=== PATIENT | female | born 1955 | race Caucasian/White ===

== ENCOUNTER 2018-05-24 08:27 | Outpatient (CLI) | payer OTHER | END 2018-05-24 08:43 | disposition home or self-care (01) | LOC: LAB 08:27 | DX: D64.89 Other specified anemias (principal); D78.89 Other postprocedural complications of the spleen; D68.8 Other specified coagulation defects; N39.0 Urinary tract infection, site not specified; R07.89 Other chest pain; I10 Essential (primary) hypertension ==